=== PATIENT | male | born 2005 | race Caucasian/White ===

== ENCOUNTER 2024-08-05 16:18 | Emergency (ER) | payer SELFPAY ==
[2024-08-05 16:33] VITALS: BP 169/87; PULSE 95; RESP 18; TEMP 36.6; O2SAT 99
--- NOTE | 2024-08-05 16:35 | XRR_ITS ---
PROCEDURE INFORMATION: Exam: XR Left Hand Exam date and time: 08/05/2024 4:43 PM Age: 19 years old Clinical indication: Injury or trauma; Other: Laceraation; Laceration; Left; Index finger TECHNIQUE: Imaging protocol: Radiologic exam of the left hand. Views: 3 or more views. COMPARISON: l spine FINDINGS: Bones/joints: No acute osseous abnormality. Soft tissues: No radiopaque foreign body XR/XR hand LT min 3V* [id number] IMPRESSION: No acute findings.
--- NOTE | 2024-08-05 16:37 | W.ED.WOUNDLC ---
HPI - Wound/Laceration General: Chief Complaint: Wound/Laceration Stated Complaint: L index finger lac Time Seen by Provider: 08/05/24 16:26 Source: patient Mode of arrival: ambulatory Limitations: no limitations History of Present Illness: 19-year-old male states that he had hit his left middle and index finger with a hammer just prior to arrival. He has a small laceration palmar aspect of the pointer finger he has some pain in his fingers he rates a 3 out of 10 unsure when his last tetanus was. Associated symptoms: Denies chills, fever(s), nausea or vomiting Related Data Allergies Allergy/AdvReac Type Severity Reaction Status Date / Time No Known Allergies Allergy Verified 08/05/24 16:42 Review of Systems Const: Denies: fever(s), chills, body aches or change in appetite ENMT: Denies: throat pain or dental pain Card: Denies: chest pain Resp: Denies: dyspnea GI: Denies: abdominal pain, nausea, vomiting or diarrhea Musc: Reports: extremity pain; Denies: neck pain or back pain Skin/Breast: Denies: rash Neuro: Denies: headache(s) Physical Exam Const: COMMON NORMALS: no acute distress, patient oriented x3 and healthy appearing HENMT: COMMON NORMALS: normocephalic and atraumatic HEAD & SCALP: normocephalic and atraumatic Eye: COMMON NORMALS: conjunctivae normal CONJUNCTIVA: Yes conjunctivae normal Neck/C-Spine: COMMON NORMALS: full ROM and supple Chest: COMMONS NORMALS: normal inspection of the chest Resp: COMMON NORMALS: normal respiratory effort Cardio: COMMON NORMALS: regular rate RATE: regular rate Extremity: COMMON NORMALS: full ROM Neuro: COMMON NORMALS: patient oriented x3, moves all extremities and no focal motor deficits Psych: COMMON NORMALS: mental status grossly normal, Normal thought process present and cooperative THOUGHT PROCESS: Normal thought process present Skin: COMMON NORMALS: no rashes or lesions noted NARRATIVE SKIN EXAM: 1 cm laceration to PIP palmar surface of the left index finger does not involve any tendons has full range of motion full-strength in the index finger GENERAL SKIN EXAM: no rashes or lesions noted Procedures Laceration Laceration 1: Site: hand Side (If applicable): left Size (cm): 1 Depth: simple, single layer Pre-repair: wound explored, irrigated extensively and deep structures intact Skin layer closed with: other (dermabond) Course Vital Signs: Vital signs: Vital Signs Temperature 97.8 F 08/05/24 16:33 Pulse Rate 95 08/05/24 16:33 Respiratory Rate 18 08/05/24 16:33 Blood Pressure 169/87 08/05/24 16:33 Pulse Oximetry 99 08/05/24 16:33 Oxygen Delivery Me thod Room Air 08/05/24 16:33 MDM - Wound/Laceration Medical Decision Making Patient presents here with laceration to right index finger has no signs at tendon damage had full range of motion x-ray shows no fracture did Dermabond his follow-up PCP return if worsening. All radiology interpretation(s) finalized by discharge Discharge Plan Discharge Patient Disposition: Home Clinical Impression: Laceration Condition: Stable Discharge Orders: Discharge ED (Routine); Ordered 08/05/24 Ordered By: Bear Francois Discharge Diet: Advance as tolerated Discharge Activity: Resume usual activity Patient Instructions: Laceration (ED), Skin Adhesive Care (ED) Print Language: Italian Coding Level of Care Code ED Buffing Machine Tender for Mariana Cortez
[2024-08-05] MEDS: tetanus-dipt-pertussis 0.5 mL SDV IM (16:43)
[2024-08-05 17:14] VITALS: BP 151/78; PULSE 89; O2SAT 99
== END 2024-08-05 17:15 | disposition home or self-care (01) ==
PROVIDERS: Emergency Provider Emergency Medicine
DX: S61.211A Laceration without foreign body of left index finger without damage to nail, initial encounter (principal); W22.8XXA Striking against or struck by other objects, initial encounter
CPT/HCPCS: 12001; 73130; 90471; 90715; 99283